=== PATIENT | female | born 1950 | race Caucasian/White ===

== ENCOUNTER 2019-08-14 07:23 | Day surgery (SDC) | payer MEDICARE, BC ==
[~2019-08-14 07:23] MED LIST: Lactated Ringers 1,000 ML IV SCH; Sodium Chloride 0.9% 10 ML SDV IV PRN; Sodium Chloride 0.9% 10 ML Syringe FLUSH PRN; Sodium Chloride 0.9% 2.5 ML Syringe FLUSH PRN; ceFAZolin 2 GM in Premix Bag 1 BAG IV ONE
[2019-08-14] MEDS ORDERED: Lidocaine 1% 20 ML MDV ONE (07:34)
[2019-08-14] MEDS ORDERED: Bupivacaine 0.5% 10 ML SDV ONE (07:34)
[2019-08-14] MEDS ORDERED: Octyl 2-Cyanoacrylate 1 Tube ONE (07:35)
--- NOTE | 2019-08-14 07:54 | PCM.PREANE ---
Preanesthetic Assessment - Anesthesia/Transfusion/Family Hx Anesthesia History: Prior Anesthesia Without Reaction Family History of Anesthesia Reaction: No Transfusion History: No Prior Transfusion(s) Intubation History: Unknown - Review of Systems General: No Symptoms Pulmonary: No Symptoms Cardiovascular: No Symptoms Gastrointestinal: No Symptoms Neurological: No Symptoms Other: Reports: None - Physical Assessment Height: 5 ft 8 in Weight: 114.759 kg ASA Class: 3 Mental Status: Alert & Oriented x3 Airway Class: Mallampati = 2 Dentition: Reports: Normal Dentition, Friant(s) (multiple upper front), Broken Tooth/Teeth (front lower incisor) Thyro-Mental Finger Breadths: 3 Mouth Opening Finger Breadths: 3 ROM/Head Extension: Full Lungs: Clear to Auscultation, Normal Respiratory Effort Cardiovascular: Regular Rate, Regular Rhythm - Allergies Allergies/Adverse Reactions: Allergies Allergy/AdvReac Type Severity Reaction Status Date / Time morphine Allergy Headache Verified 07/31/19 10:45 - Blood Blood Available: No - Anesthesia Plan Pre-Op Medication Ordered: None - Acknowledgements Anesthesia Type Planned: MAC Pt an Appropriate Candidate for the Planned Anesthesia: Yes Alternatives and Risks of Anesthesia Discussed w Pt/Guardian: Yes Pt/Guardian Understands and Agrees with Anesthesia Plan: Yes PreAnesthesia Questionnaire HEENT History: Reports: Other (See Below) Other HEENT History: wears glasses Cardiovascular History: Reports: High Cholesterol, Hypertension Respiratory History: Reports: COPD (mild), Other (See Below) Other Respiratory History: former smoker, has prescribed inhaler to use as needed Gastrointestinal History: Reports: None Genitourinary History: Reports: UTI, 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: Musculoskeletal History: Reports: None Neurological History: Reports: Cerebral Aneurysms (2 clipps placed) Psychiatric History: Reports: None Endocrine/Metabolic History: Reports: Obesity/BMI 30+ (BMI 38.5) Hematologic History: Reports: None Immunologic History: Reports: None Oncologic (Cancer) History: Reports: Other (See Below) (h/o malignant neoplasm of vulva) Dermatologic History: Reports: None - Past Surgical History Head Surgeries/Procedures: Reports: Craniotomy HEENT Surgical History: Reports: Tonsillectomy Cardiovascular Surgical History: Reports: None Respiratory Surgical History: Reports: None GI Surgical History: Reports: Cholecystectomy, Colonoscopy Female Surgical History: Reports: Hysterectomy, Other (See Below) Other Female Surgeries/Procedures: vulvar lesion ablation for precancerous cells Endocrine Surgical History: Reports: None Neurological Surgical History: Reports: Intracranial Other Neurological Surgeries/Procedures: surgery for intracranial aneurysm, Musculoskeletal Surgical History: Reports: None Oncologic Surgical History: Reports: Other (See Below) Other Oncologic Surgeries/Procedures: vulvar lesion ablation for precancerous cells Dermatological Surgical History: Reports: None - SUBSTANCE USE Smoking Status *Q: Former Smoker (quit a year ago) Tobacco Use Within Last Twelve Months: No - HOME MEDS Home Medications: Home Meds Albuterol Sulfate [Proair Respiclick] 1 inhalation INH ASDIRECTED PRN 07/31/19 [ History] Ced/D3/Mag11/Zinc/Sail Finisher Machine/Lance/Bor [Caltrate 600+D Plus Tablet] 1 tab PO DAILY 07/31 [History] Cranberry Ext/C/L. Sporogenes [Azo Cranberry] 1 tab PO DAILY 07/31/19 [History] Cyanocobalamin (Vitamin B12) [Vitamin B12] 1 tab PO DAILY 07/31/19 [History] Furosemide 40 mg PO DAILY 07/31/19 [History] Losartan/Hydrochlorothiazide [Losartan-HCTZ 100-25 MG] 1 tab PO DAILY 07/31/19 [ History] Potassium Chloride 20 meq PO DAILY 07/31/19 [History] Sulfamethoxazole/Trimethoprim [Sulfamethoxazole-Tmp Ds Tablet] 1 tab PO DAILY [History] atorvaSTATin Calcium [Atorvastatin Calcium] 40 mg PO DAILY 07/31/19 [History] - CURRENT (IN HOUSE) MEDS Current Meds: Current Medications Lactated Ringer's (Ringers, Lactated) 1,000 mls @ 125 mls/hr IV ASDIRECTED DEBRA Sodium Chloride (Saline Flush) 10 ml FLUSH ASDIRECTED PRN PRN Reason: Keep Vein Open Sodium Chloride (Saline Flush) 2.5 ml FLUSH ASDIRECTED PRN PRN Reason: Keep Vein Open Sodium Chloride (Normal Saline) 10 ml IV ASDIRECTED PRN PRN Reason: IV Use Discontinued Medications Bupivacaine HCl (Sensorcaine-Mpf 0.5%) Confirm Administered Dose 10 ml .ROUTE .STK-MED ONE Stop: 08/14/19 07:35 Cefazolin Sodium/Dextrose 2 gm (/ Premix) 50 mls @ 100 mls/hr IV ONETIME ONE Stop: 08/12/19 11:03 Lidocaine HCl (Xylocaine 1%) Confirm Administered Dose 20 ml .ROUTE .STK-MED ONE Stop: 08/14/19 07:35 Octyl Cyanoacrylate (Dermabond Advance) Confirm Administered Dose 1 applic .ROUTE .STK-MED ONE Stop: 08/14/19 07:36
[2019-08-14] MEDS ORDERED: Propofol 200 MG/20 ML SDV ONE ×2 (08:54→08:55)
[2019-08-14] MEDS ORDERED: ceFAZolin 1 GM Vial ONE (08:56)
[2019-08-14] MEDS ORDERED: Sodium Chloride 0.9% 20 ML ONE (08:56)
[2019-08-14] MEDS ORDERED: Midazolam 1 MG/ML 2 ML SDV ONE (09:09)
--- NOTE | 2019-08-14 09:40 | PCM.OPNOTE ---
- General Post-Op/Procedure Note Date of Surgery/Procedure: 08/14/19 Operative Procedure(s): Excision scalp lesions x 2 Findings: scalp lesion #1: 0.5 cm scalp lesions #2: 1 cm Pre Op Diagnosis: Parietal scalp lesions Post-Op Diagnosis: same Anesthesia Technique: MAC Primary Surgeon: Merissa Solano Condition: Good
--- NOTE | 2019-08-14 10:00 | PCM.POSTAN ---
POST ANESTHESIA ASSESSMENT - MENTAL STATUS Mental Status: Alert, Oriented - VITAL SIGNS Vital Signs: Last Vital Signs Temp 36.2 C 08/14/19 09:37 Pulse Resp 21 H 08/14/19 09:54 BP 111/56 L 08/14/19 09:54 Pulse Ox 95 08/14/19 09:54 - RESPIRATORY Respiratory Status: Respiratory Rate WNL, Airway Patent, O2 Saturation Stable - CARDIOVASCULAR CV Status: Pulse Rate WNL, Blood Pressure Stable - GASTROINTESTINAL GI Status: No Symptoms - PAIN Pain Score: 0 - POST OP HYDRATION Hydration Status: Adequate & Stable - OBSERVATIONS Free Text/Narrative:: no anesthesia problems
--- NOTE | 2019-08-14 10:22 | PCM48HPAN ---
Post Anesthesia Note - EVALUATION WITHIN 48HRS OF ANESTHETIC Vital Signs in Normal Range: Yes Patient Participated in Evaluation: Yes Respiratory Function Stable: Yes Airway Patent: Yes Cardiovascular Function Stable: Yes Hydration Status Stable: Yes Pain Control Satisfactory: Yes Nausea and Vomiting Control Satisfactory: Yes Mental Status Recovered: Yes Vital Signs: Last Vital Signs Temp 36.8 C 08/14/19 10:06 Pulse 72 08/14/19 10:06 Resp 16 08/14/19 10:06 BP 132/62 08/14/19 10:06 Pulse Ox 94 L 08/14/19 10:06 - COMMENTS/OBSERVATIONS Free Text/Narrative:: No anesthesia problems
--- NOTE | 2019-08-14 11:45 | OR ---
SURGEON: MERISSA SOLANO MD DATE OF PROCEDURE: 08/14/2019 PREOPERATIVE DIAGNOSIS: Scalp lesions x2. POSTOPERATIVE DIAGNOSIS: Scalp lesions x2. PROCEDURE PERFORMED: Excision of parietal scalp lesions x2. PRIMARY SURGEON: Merissa Solano MD. ANESTHESIA: MAC, local. FLUIDS: See Anesthesia record. ESTIMATED BLOOD LOSS: 5 mL. FINDINGS: 0.5 cm and 1 cm parietal scalp lesions. COMPLICATIONS: None. INDICATIONS: The patient is a 68-year-old female who presents with two lesions on her scalp. They appeared to be sebaceous cysts. The decision was made to proceed to the operating room to excise these. I explained the procedure, expected perioperative course, and risks including bleeding or infection. The patient verbalized understanding and wishes to proceed. PROCEDURE IN DETAIL: The patient was brought into the OR and placed on the OR table in supine position. A time-out was completed verifying the patient's name, age, date of , allergies, and procedure to be performed. Monitored anesthesia care was induced. The patient was placed into beach chair position. The parietal scalp area was prepped and draped in usual standard fashion. I injected 1% lidocaine plain around each of the scalp lesions. A 15 blade was used to make an 1 cm incision over the smaller of the lesions. I then elevated the skin and used cautery to dissect around what appeared to be a subcutaneous sebaceous cyst. I got into the cyst, so it was removed in piecemeal fashion. It appeared to be 0.5cm in size. The cyst was removed and sent to pathology. Hemostasis was achieved with electrocautery. I then closed the wound with interrupted 2-0 Prolene sutures. I turned my attention to the bigger of the cysts. A 2 cm incision was made overlying this using a 15 blade. I dissected out what appeared to be another sebaceous cyst from the subcutaneous tissues using electrocautery. It was removed and placed on the back table. It measured 1 cm in size. It was sent to pathology in the same jar as the smaller cyst I had just removed from the other site. Hemostasis was achieved in the wound with electrocautery. I then closed the wound with interrupted 2-0 Prolene sutures. Dermabond was applied over the top of the incisions. The procedure was terminated. All counts were complete and correct at the end of the case. The patient the patient was taken to PACU in stable condition. LEMEASH / MODL /[id number] AUDRA
== END 2019-08-14 10:32 | disposition home or self-care (01) ==
LOC: MW.SDS 07:23
PROVIDERS: ATTEND Surgery
DX: L72.12 Trichodermal cyst (principal); I10 Essential (primary) hypertension; E78.5 Hyperlipidemia, unspecified; E78.00 Pure hypercholesterolemia, unspecified; J44.9 Chronic obstructive pulmonary disease, unspecified; E66.9 Obesity, unspecified; Z68.38 Body mass index [BMI] 38.0-38.9, adult; Z87.891 Personal history of nicotine dependence; Z88.5 Allergy status to narcotic agent; Z79.899 Other long term (current) drug therapy
CPT/HCPCS: 11420; 11421; 88304; A9270; J0690; J2001; J2250; J2704; J7120; 00300; J3490

== ENCOUNTER 2021-09-06 15:29 | Inpatient (IN) | payer MEDICARE, OTHER ==
[2021-09-06] MEDS ORDERED: Sodium Chloride 0.9% 2.5 ML Syringe FLUSH PRN ×2 (15:46→16:33)
[2021-09-06] MEDS ORDERED: Sodium Chloride 0.9% 10 ML Syringe FLUSH PRN ×2 (15:46→16:33)
[2021-09-06] MEDS ORDERED: Dexamethasone 4 MG/ML SDV IVPUSH ONE (15:52)
[2021-09-06] MEDS ORDERED: REMDESIVIR 200 MG in Sodium Chloride 0.9% 250 ML IV ONE ×2 (15:52→16:15)
[2021-09-06] MEDS ORDERED: Acetaminophen 325 MG Tab PO PRN (16:33)
[2021-09-06 16:57] LABS: BLOOD UREA NITROGEN,BUN 14 mg/dL (7.0-18.0); CARBON DIOXIDE,CO2 32.2 mmol/L (21.0-32.0); CHLORIDE,CL 96 mmol/L (98-107); GLUCOSE RANDOM 120 mg/dL (74-106); POTASSIUM,K 3.5 mmol/L (3.5-5.1); SODIUM,NA 137 mmol/L (136-145)
[2021-09-06] MEDS ORDERED: Ondansetron 4 MG/2 ML SDV IVPUSH PRN (17:00)
[2021-09-06] MEDS ORDERED: Enoxaparin 40 MG/0.4 ML Syringe SUBCUT SCH (17:00)
[2021-09-06] MEDS ORDERED: Levofloxacin/Dextrose 5%-Water 750 MG in Premix Bag 1 BAG IV SCH (18:00)
[2021-09-06] MEDS: Albuterol/Ipratropium 3.0-0.5 MG/3 ML Neb Soln NEB SCH ×2 (18:04→21:18)
[2021-09-06] MEDS: methylPREDNISolone Sodium Succinate 125 MG/2 ML SDV IVPUSH SCH (19:58)
[2021-09-07] MEDS: Albuterol/Ipratropium 3.0-0.5 MG/3 ML Neb Soln NEB SCH ×4 (03:09→13:57)
[2021-09-07] MEDS: methylPREDNISolone Sodium Succinate 125 MG/2 ML SDV IVPUSH SCH ×2 (03:11→11:00)
[2021-09-07 06:36] LABS: CARBON DIOXIDE,CO2 28.7 mmol/L (21.0-32.0); POTASSIUM,K 3.2 mmol/L (3.5-5.1)
[2021-09-07] MEDS ORDERED: Pantoprazole 40 MG Tab.CR PO SCH (07:30)
[2021-09-07] MEDS ORDERED: atorvaSTATin 20 MG Tab PO SCH (09:00)
[2021-09-07] MEDS ORDERED: Potassium Chloride 20 MEQ Tab.ER PO SCH ×2 (09:00→12:00)
[2021-09-07] MEDS ORDERED: Budesonide/Formoterol [Symbicort 160-4.5 Mcg] INH SCH (09:00)
[2021-09-07] MEDS ORDERED: Potassium Chloride 20 MEQ Tab.ER PO ONE (09:00)
[2021-09-07] MEDS ORDERED: Furosemide 40 MG Tab PO SCH (09:00)
[2021-09-07] MEDS ORDERED: Hydrochlorothiazide/Losartan 12.5-50 mg Tab PO SCH (09:00)
[2021-09-07] MEDS ORDERED: Losartan 50 MG Tab PO SCH (09:45)
[2021-09-07] MEDS ORDERED: Hydrochlorothiazide 25 MG Tab PO SCH (09:45)
[2021-09-07] MEDS ORDERED: Magnesium Sulfate/Water 2 GM in Premix Bag 1 BAG IV ONE (10:00)
[2021-09-07] MEDS ORDERED: Magnesium Chloride 64 MG Tab.ER PO SCH (12:00)
== END 2021-09-07 15:30 | disposition home or self-care (01) | DRG 189 ==
LOC: MW.ED 15:29 → UNDOADMIN 15:49 → MW.MS 15:49
PROVIDERS: ADMIT Internal Medicine; ATTEND Internal Medicine
DX: J96.01 Acute respiratory failure with hypoxia (principal); J44.1 Chronic obstructive pulmonary disease with (acute) exacerbation; Z97.3 Presence of spectacles and contact lenses; I10 Essential (primary) hypertension; E78.5 Hyperlipidemia, unspecified; Z20.822 Contact with and (suspected) exposure to COVID-19; Z88.8 Allergy status to other drugs, medicaments and biological substances; Z79.51 Long term (current) use of inhaled steroids; H54.7 Unspecified visual loss; E78.00 Pure hypercholesterolemia, unspecified; E66.9 Obesity, unspecified; Z90.89 Acquired absence of other organs; Z86.16 Personal history of COVID-19; Z79.52 Long term (current) use of systemic steroids; Z79.899 Other long term (current) drug therapy; Z88.5 Allergy status to narcotic agent; Z87.440 Personal history of urinary (tract) infections; Z90.49 Acquired absence of other specified parts of digestive tract; Z90.710 Acquired absence of both cervix and uterus; Z87.891 Personal history of nicotine dependence; Z68.38 Body mass index [BMI] 38.0-38.9, adult
CPT/HCPCS: 36415; 80053; 83735; 84484; 85025; 87804; 93005; 94640; 99284-25; A9270-GY; J1650; J1956; J2930; J3475; J7050; J7620-GY; U0002